=== PATIENT | female | born 1995 | race Caucasian/White ===

== ENCOUNTER 2019-05-02 02:16 | Emergency (ER) | payer SELFPAY ==
[~2019-05-02] VITALS: Ht 170.2 cm; Wt 72.6 kg
[2019-05-02 02:21] VITALS: BP 154/92
== END 2019-05-02 04:16 | disposition left against medical advice (07) ==
LOC: ED 02:16
DX: Z53.21 Procedure and treatment not carried out due to patient leaving prior to being seen by health care provider (principal)